=== PATIENT | male | born 1930 | race Caucasian/White ===

== ENCOUNTER → 2021-07-10 | Outpatient (CLI) | payer OTHER ==
[~2021-07-10] MED LIST: ACID GONE TABL1 EACH PO; ALDACTONE 25MG25 MG PO; ANUCORT-HC25 MG PR; ARICEPT10 MG PO; ATORVASTATIN CA10 MG PO; BUMEX 1MG TABLET1 MG PO; COREG 3.125M3.125 MG PO; ELIQUIS 2.5 MG2.5 MG PO; ENSURE LIQUID237 ML PO; FENOFIBRATE160 MG PO; FERROUS GLUCON324 M1 PO; FISH OIL 1,0001 EACH PO; FLOMAX 0.4 MG0.4 MG PO; HYDRALAZINE HCL10 MG PO; IPRAT-ALBUT 0.5-3 ML INH; ISORDIL TITRADOS5 MG PO; LASIX40 MG PO; NAMENDA10 MG PO; PRILOSEC OTC20 MG PO; SINEMET 25-1001 EACH PO; SODIUM BICARBO650 MG PO; SYNTHROID25 MCG PO; TYLENOL W/CODEIN1 E1 PO
== END ==
LOC: WCC 08:58
DX: L03.115 Cellulitis of right lower limb (principal); L03.116 Cellulitis of left lower limb; R60.0 Localized edema; I50.22 Chronic systolic (congestive) heart failure; N18.9 Chronic kidney disease, unspecified; F02.80 Dementia in other diseases classified elsewhere, unspecified severity, without behavioral disturbance, psychotic disturbance, mood disturbance, and anxiety
CPT/HCPCS: G0463